=== PATIENT | female | born 1955 | race Caucasian/White ===

== ENCOUNTER 2018-10-05 14:45 | Observation (INO) | payer MEDICARE, MEDICAID ==
[~2018-10-05] VITALS: Ht 165.1 cm; Wt 36.0 kg
[~2018-10-05 14:45] MED LIST: ALL DAY10 MG PO; AMBIEN CR12.5 MG OR; AMBIEN5 MG PO; AMITIZA24 MCG PO; AMITRIPTYLIN75 MG PO; ANTIVERT OR; ARAVA20 MG OR; BACLOFEN10 MG OR; BACLOFEN10 MG PO; CIPRO XR500 MG PO; CIPRO500 MG OR; CIPROFLOXACN500 MG PO; CITALOPRAM20 MG OR; CLONAZEPAM0.5 MG PO; CLONAZEPAM1 MG PO; COLACE100 MG PO; CYANOCOBALAM1000 MCG IJ; CYANOCOBALAM1000 MCG IM; CYTOTEC200 MCG PO; DETROL LA4 MG OR; DIAZEPAM2 MG OR; DICLOXACILL500 MG PO; DILAUDID 2MG2 MG/TA1 PO; DILAUDID8 MG PO; DOC-Q-LAX1 TAB PO; DOCUSATE SOD100 MG PO; DOXYCYC MONO OR; DURAGESIC100 MCG/1 TD; EC-NAPROSYN500 MG OR; FENTANYL100 MCG/H TD; FENTANYL25 MCG/HR TD; FENTANYL50 MCG/HR TD; FERROUS SULF325 M1 PO; FEXOFENADINE180 MG PO; FLURAZEPAM30 MG OR; FOLIC ACID1 MG PO; HYDROCO/AP10 MG/660 OR; KLONOPIN0.5 MG PO; KLOR-CON M1010 MEQ OR; LASIX 20 MG TAB20 MG PO; LEVOTHYROXIN100 MC1 PO; LEVOTHYROXIN75 MC1 PO; LEVOTHYROXIN88 MC1 PO; LOPRESSOR50 MG PO; METHOTREXATE25 MG/ML IJ; METHOTREXATE25 MG/ML IM; METHOTREXATE25 MG/ML SC; METOPROLOL TART50 MG PO; METOPROLOL25 M1 OR; MORPHINE SUL100 MG OR; MORPHINE SUL30 M2 PO; MORPHINE SUL30 M3 OR; MORPHINE SUL30 M3 PO; MORPHINE SULFAT60 MG OR; NAPROXEN500 MG PO; OMEPRAZOLE20 MG PO; OXYCONTIN40 MG PO; OXYCONTIN80 MG OR; PHENERGAN25 MG/TAB PO; PRILOSEC20 MG PO; PROMETHAZINE25 MG OR; RANITIDINE150 M1 PO; REQUIP5 MG OR; SOMA350 MG OR; SUCRALFATE1 GM PO; SYNTHROID100 MCG OR; VANCOMYCIN HCL1 GM IV; VITAMIN B-12500 MC2 SC; VOLTAREN TOP; XANAX XR0.5 MG OR; ZITHROMAX250 MG PO; ZOLPIDEM5 MG PO; [UNRECOGNIZED DRUG - OTHER] OR; [UNRECOGNIZED DRUG - OTHER] PO; [UNRECOGNIZED DRUG - REMARK]
--- NOTE | 2018-10-05 14:45 | NUR ---
PT TO ROOM 10 VIA EMS. PT SEVERELY EMACIATED.
--- NOTE | 2018-10-05 15:00 | NUR ---
PT HAS SEVERE RHEUMOTOID ARTHRITIS, RIGHT HAND HAND IS BENT AND CRIPPLED LOOKING, PT APPEARS TO BE EMACIATED. SHE STATES SHE LIVES WITH NEPHEW BUT HASNT FELT LIKE EATING OR DRINKING FOR "AWHILE"
[2018-10-05 15:17] LABS: HEMATOCRIT 34.9 % (37.0-47.0); IMMATURE GRANULOCYTES 0.4 % (0.0-5.0); MEAN CELL VOLUME 89.9 fL CALC (80.0-100.0); MEAN CORPUSCULAR HGB 28.4 pG CALC (26.0-32.0); MEAN CORPUSCULAR HGB CONC 31.5 g/L CALC (32.0-36.0); NEUT# 6.36 thou/uL (2.00-7.15); RED BLOOD COUNT 3.88 mill/uL (4.20-5.60); RED CELL DISTRI WIDTH 15.7 % (11.5-15.5)
[2018-10-05 15:40] LABS: ALBUMIN 3.3 g/dL (3.2-5.0); ALKALINE PHOSPHATASE 95 u/l (38-126); ANION GAP 14 (6-22 (CALC)); BILIRUBIN, TOTAL 0.3 mg/dL (0.0-1.4); BUN 14 mg/dL (8-23); BUN/CREATININE RATIO 16 (12-20 (CALC)); CARBON DIOXIDE 24 mmol/l (22-30); CHLORIDE 108 mmol/l (95-108); CPK 70 u/l (30-165); CREATININE 0.8 mg/dL (0.5-1.0); GFR > 60 ML/MIN (>=60 (CALC)); GFR FOR AFR.AMER. > 60 ML/MIN (>=60 (CALC)); POTASSIUM 4.4 mmol/l (3.5-5.1); SGOT/AST 20 u/l (9-36); SODIUM 141 mmol/l (137-146); TOTAL PROTEIN 7.2 g/dL (6.3-8.2)
--- NOTE | 2018-10-05 15:53 | NUR ---
PT REPOSITIONED FOR COMFORT. PILLOWS FOR SUPPORTS AND PRESSURE REDUCTION.
[2018-10-05 16:38] LABS: URINE BILIRUBIN - DIPSTICK NEGATIVE (NEGATIVE); URINE BLOOD DIPSTICK TRACE-INTACT (NEGATIVE); URINE COLOR YELLOW; URINE GLUCOSE - DIPSTICK NEGATIVE (NEGATIVE); URINE KETONE NEGATIVE (NEGATIVE); URINE LEUK ESTERASE NEGATIVE (NEGATIVE); URINE NITRITE - DIPSTICK NEGATIVE (Negative); URINE PROTEIN - DIPSTICK NEGATIVE (NEG-TRACE); URINE SPECIFIC GRAVITY 1.015; URINE UROBILINOGEN - DIPSTICK 0.2 E.U./dL (0.2)
--- NOTE | 2018-10-05 16:40 | NUR ---
PT STATES SHE FEELS A LITTLE BETTER, RESTING QUIETLY ON STRECHER.
--- NOTE | 2018-10-05 17:51 | NUR ---
SAUSAGE INSPECTOR CONSULT FOR PT. PT STATES "I AM OUT OF MY PAIN MEDICATION BECAUSE MY NEPHEW, PJ, STEALS MY PAIN MEDICATION. LAST NIGHT I HAD TO TAKE BENADRYL BECAUSE I WAS GOING THROUGH WITHDRAWAL ALL MY PAIN MEDICATIONS ARE MISSING AND I HAVE NONE TO TAKE WHEN I NEED THEM.
--- NOTE | 2018-10-05 18:00 | NUR ---
[facility] dispatch advised of pt stating that her nephem PJ takes her medications. Pt states she has Dilaudid, Klonopin and Fentanyl, buthe only takes the dilaudid and fentanyl. Explained to pt that we will have to report this to the police because its against the law to take medication that isn't prescribed to you. Pt states " I don't want to get him into trouble, but he takes it from me." Advised again that it was against the law and I would bel notifying the police. "Well he gets mad so I just give him the bottles and he takes what he wants" Explained to pt that she is also committing a crime by distributing medication without a license to someone that it isn't written for. "How do I let him know since I don't know his cellphone number?" Advised she could talk to the police when they get here, but she should be ashamed of herself for condoning that behavior.
--- NOTE | 2018-10-05 18:10 | NUR ---
Officer Naomi #[id number] at bedside. Case No. [id number]
--- NOTE | 2018-10-05 18:29 | NUR ---
PT REMAINS ALERT/ORIENTED X3, NO VOMITING SINCE ARRIVAL. VITAL SIGNS STABLE. CALL LIGHT WITHIN REACH
--- NOTE | 2018-10-05 18:55 | NUR ---
REPORT CALLED TO FLOOR FOR CONTINUATION OF CARE. PT REPORT GIVEN TO ALISSA NÚÑEZ. FOR CARE UNTIL PT IS READY TO BE TAKEN TO MED SURG
[2018-10-05 19:15] VITALS: BP 143/85
--- NOTE | 2018-10-05 19:15 | NUR ---
PT ARRIVED TO FLOOR VIA STRETCHER ACCOMPAINED BY ER STAFF. PT ALERT AND ORIENTED. EMS SITE NOTED TO LAC SITE APPEARS HEALTHY. SKIN INTACT. PT NON-AMBULATORY TRANSFERED FROM STRETCHER TO BED X2 PERSON ASSIST. PT WEARS BRIEF FOR PERIODS OF INCONTINENCE. ORIENTED TO ROOM AND CALL LIGHT SYSTEM. DISCUSSED POC. PT VERBALIZED UNDERSTANDING. CALL LIGHT WITHIN REACH. WILL CONTINUE TO MONITOR.
--- NOTE | 2018-10-05 19:15 | NUR ---
PT. TAKEN [place] [facility] [place], NO C/[place].
--- NOTE | 2018-10-05 22:30 | NUR ---
PT REQUESTED SLEEPING PILL DURING ASSESSMENT. CHIEF LIFESTYLE OFFICER NOTED PT TO BE VERY DROWSY. VS TAKEN AT THIS TIME 140/81 85 99.3 18 96% ON RA. BS 122. PT NOT ABLE TO KEEP EYES OPEN TO ANSWER QUESTIONS. SLEEPING PILL NOT GIVEN AT THIS TIME. WILL CONTINUE TO MONITOR.
[2018-10-06 00:09] VITALS: BP 159/93
--- NOTE | 2018-10-06 01:15 | NUR ---
PT AWAKE, ALERT AND ORIENTED. PT REPOSITIONED IN BED. PT REQUESTING DILUADID. EDUCATED PT ON MEDICATIONS ORDERED BY PHYSICIAN. WILL ADMINISTER APAP, CONTINUE TO MONITOR AND REASSESS.
--- NOTE | 2018-10-06 02:53 | NUR ---
PT C/O NOT BEING ABLE TO SLEEP REQUESTING SLEEPING PILL AGAIN. REORIENTED PT TO TIME. PT BECAME ANXIOUS. ADMINISTERED PRN XANAX AT THIS TIME. NO S/S OF PAIN NOTED. CALL LIGHT WITHIN REACH. WILL CONTINUE TO MONITOR.
--- NOTE | 2018-10-06 03:29 | NUR ---
PT RESTING IN BED. NO S/S OF DISTRESS NOTED. CALL LIGHT WITHIN REACH. WILL CONTINUE TO MONITOR.
[2018-10-06 04:00] VITALS: BP 146/92
[2018-10-06 05:11] LABS: HEMATOCRIT 33.4 % (37.0-47.0); HEMOGLOBIN 10.5 g/dl (12.0-16.0); IMMATURE GRANULOCYTES 0.3 % (0.0-5.0); MEAN CELL VOLUME 89.3 fL CALC (80.0-100.0); MEAN CORPUSCULAR HGB 28.1 pG CALC (26.0-32.0); MEAN CORPUSCULAR HGB CONC 31.4 g/L CALC (32.0-36.0); NEUT# 5.91 thou/uL (2.00-7.15); RED BLOOD COUNT 3.74 mill/uL (4.20-5.60); RED CELL DISTRI WIDTH 15.8 % (11.5-15.5)
[2018-10-06 05:19] LABS: ALBUMIN 2.9 g/dL (3.2-5.0); ALKALINE PHOSPHATASE 89 u/l (38-126); ANION GAP 12 (6-22 (CALC)); BILIRUBIN, TOTAL 0.3 mg/dL (0.0-1.4); BUN 11 mg/dL (8-23); BUN/CREATININE RATIO 15 (12-20 (CALC)); CARBON DIOXIDE 23 mmol/l (22-30); CHLORIDE 107 mmol/l (95-108); CREATININE 0.8 mg/dL (0.5-1.0); GFR > 60 ML/MIN (>=60 (CALC)); GFR FOR AFR.AMER. > 60 ML/MIN (>=60 (CALC)); POTASSIUM 3.7 mmol/l (3.5-5.1); SGOT/AST 19 u/l (9-36); SODIUM 138 mmol/l (137-146); TOTAL PROTEIN 6.7 g/dL (6.3-8.2)
--- NOTE | 2018-10-06 08:43 | NUR ---
AT BEDSIDE DISCUSSING POC WITH PATIENT INCLUDING DISCHARGE.
[2018-10-06 09:20] VITALS: BP 123/76
--- NOTE | 2018-10-06 09:20 | NUR ---
REPORT RECEIVED FROM CAL ABREU;PT APPEARS TO BE SLEEPING IN SUPINE POSITION;RESPIRATIONS APPEAR EVEN AND UNLABORED ON RA;NO S/S OF DISTRESS NOTED;CONTACT PRECAUTIONS IN PLACE;FALL PRECAUTIONS NOTED WITH BED IN THE LOWEST POSITION AND CALL LIGHT IN REACH;WILL CONTINUE TO MONITOR
--- NOTE | 2018-10-06 09:20 | NUR ---
PT RESTING IN RIGHT SIDE LAYING POSITION,A&O X3;VS OBTAINED AND ASSESSMENT COMPLETED;PT REPORTS CHRONIC PAIN, PRN PAIN MEDICATION PROVIDED BUT PT REFUSED AT THIS TIME;RESPIRATIONS EVEN AND UNLABORED ON RA,CLEAR LUNG SOUNDS;ABDOMEN SOFT ON PALPATION AND ACTIVE IN ALL 4 QUADRANTS;STRONG PEDAL PULSES;SKIN INTACT;EMS #20G TO LAC INFUSING D5 1/2 NS @ 100ML/HR,SITE APPEARS HEALTHY;TELE MONITORING IN PLACE;PT DENIES ANY ADDITIONAL NEEDS AT THIS TIME AND IS ENCOURAGED TO CALL FOR ASSISTANCE IF NEEDED;FALL PRECAUTIONS IN PLACE WITH CALL LIGHT IN REACH;WILL CONTINUE TO MONITOR
[2018-10-06 11:15] VITALS: BP 133/76
[2018-10-06] MEDS ORDERED: PROMETHAZINE12.5 M4 PO (11:15)
--- NOTE | 2018-10-06 11:35 | NUR ---
PT RESTING IN SEMI FOWLERS POSITION;RESPIRATIONS EVEN AND UNLABORED ON RA;PT DENIES ANY CURRENT NEEDS;IV SITE TO LAC SALINE LOCKED AT THIS TIME PER ORDER;TELE MONITORING IN PLACE;PT ENCOURAGED TO CALL FOR ASSISTANCE IF NEEDED;FALL PRECAUTIONS IN PLACE WITH CALL LIGHT IN REACH;WILL CONTINUE TO MONITOR
--- NOTE | 2018-10-06 15:30 | NUR ---
ALL DISCHARGE INSTRUCTIONS PROVIDED AT THIS TIME,QUESTIONS ANSWERED;IV SITE REMOVED WITH CATHETER INTACT;AWAITING TRANSPORTATION HOME.
--- NOTE | 2018-10-06 15:52 | NUR ---
Discharge instructions given. Patient verbalizes understanding of same. Discharged in stable condition via Wheelchair to with *Other. All belongings sent with pt.
== END 2018-10-06 15:55 | disposition home or self-care (01) ==
LOC: ED 14:45 → ED-I 17:37 → ED 18:10 → MS2 18:11
PROVIDERS: ADMIT Internal Medicine Geriatric Medicine; ATTEND Internal Medicine Geriatric Medicine
DX: G89.29 Other chronic pain (principal); M06.9 Rheumatoid arthritis, unspecified; M24.562 Contracture, left knee; M24.561 Contracture, right knee; M24.575 Contracture, left foot; M24.574 Contracture, right foot; E03.9 Hypothyroidism, unspecified; M19.90 Unspecified osteoarthritis, unspecified site; F32.9 Major depressive disorder, single episode, unspecified; I10 Essential (primary) hypertension; F41.9 Anxiety disorder, unspecified; R64 Cachexia; Z99.3 Dependence on wheelchair; Z68.1 Body mass index [BMI] 19.9 or less, adult; R42 Dizziness and giddiness; R53.1 Weakness

== ENCOUNTER 2018-10-07 16:49 | Inpatient (IN) | payer MEDICARE, MEDICAID ==
[~2018-10-07] VITALS: Ht 165.1 cm; Wt 28.3 kg
[~2018-10-07 16:49] MED LIST changes: +PROMETHAZINE12.5 M4 PO
--- NOTE | 2018-10-07 16:50 | NUR ---
PT ARRIVED VIA EMS STRETCHER TO RM 9, ALERT AND RESPONSIVE, VERBALLY APPROPRIATE, NOT ACCOMPANIED BY FAMILY OR FRIENDS.
--- NOTE | 2018-10-07 17:32 | NUR ---
PT HAS SLIGHT SWELLING TO RT UPPER EYELID. PT DENIES FALL OR INJURY. PT ALERT AND ORIENTED. MAEW. NIH NEGATIVE.
--- NOTE | 2018-10-07 18:00 | NUR ---
PTS SISTERS AT BEDSIDE. VSS. PT AFEBRILE. COMPLETED 1L EMS IV FLUIDS.PT ALERT AND RESPONDS APPROPRIATELY
[2018-10-07 18:16] LABS: MEAN CELL VOLUME 91.6 fL CALC (80.0-100.0); MEAN CORPUSCULAR HGB 27.9 pG CALC (26.0-32.0); MEAN CORPUSCULAR HGB CONC 30.5 g/L CALC (32.0-36.0); NEUT# 16.42 thou/uL (2.00-7.15); RED BLOOD COUNT 4.3 mill/uL (4.20-5.60)
[2018-10-07 18:19] LABS: HEMATOCRIT 39.4 % (37.0-47.0)
[2018-10-07 18:28] LABS: ALBUMIN 3.4 g/dL (3.2-5.0); ALKALINE PHOSPHATASE 103 u/l (38-126); ANION GAP 15 (6-22 (CALC)); BILIRUBIN, TOTAL 0.5 mg/dL (0.0-1.4); BUN 17 mg/dL (8-23); BUN/CREATININE RATIO 23 (12-20 (CALC)); CARBON DIOXIDE 18 mmol/l (22-30); CHLORIDE 108 mmol/l (95-108); CREATININE 0.7 mg/dL (0.5-1.0); GFR > 60 ML/MIN (>=60 (CALC)); GFR FOR AFR.AMER. > 60 ML/MIN (>=60 (CALC)); SODIUM 139 mmol/l (137-146); TOTAL PROTEIN 7.6 g/dL (6.3-8.2)
[2018-10-07 18:39] LABS: SGOT/AST 34 u/l (9-36)
--- NOTE | 2018-10-07 19:00 | NUR ---
CLEANSED OF DARK LOOSE STOOL AND UA VIA STRAIGHT CATH PERFORMED. PT TOELRATED FAIR. PT STATES SHE HAS BEEN "OUT OF MY PAIN MEDICINE FOR 24HOURS".
[2018-10-07 19:53] LABS: URINE BILIRUBIN - DIPSTICK NEGATIVE (NEGATIVE); URINE BLOOD DIPSTICK TRACE-INTACT (NEGATIVE); URINE COLOR YELLOW; URINE GLUCOSE - DIPSTICK NEGATIVE (NEGATIVE); URINE KETONE TRACE mg/dL (NEGATIVE); URINE LEUK ESTERASE NEGATIVE (NEGATIVE); URINE NITRITE - DIPSTICK NEGATIVE (Negative); URINE PROTEIN - DIPSTICK NEGATIVE (NEG-TRACE); URINE UROBILINOGEN - DIPSTICK 0.2 E.U./dL (0.2)
[2018-10-07 19:57] LABS: BARBITURATES NEGATIVE (NEGATIVE); COCAINE NEGATIVE (NEGATIVE); METHADONE NEGATIVE (NEGATIVE); TETRAHYDROCANNABIONOL NEGATIVE (NEGATIVE); TRICYLIC ANTIDEPRESSANTS POSITIVE (NEGATIVE)
[2018-10-07 19:58] LABS: OXCYCODONE NEGATIVE (NEGATIVE)
--- NOTE | 2018-10-07 20:15 | NUR ---
PATIENT ABX AND INF HUNG. AWAITING DISPOSITION.
--- NOTE | 2018-10-07 21:22 | NUR ---
PATIENT INFORMED OF PLANS TO ADMIT. MEDICATED WITH PO KCL AND SECOND ABX GIVEN. PATIENT C/O INCREASED BACK PAIN. STATES SHE RAN OUT OF HER FENTANYL AND DILAUDID ON SATURDAY.
--- NOTE | 2018-10-07 21:52 | NUR ---
REPORT CALLED TO JAVIER IN ICU (MS OVERFLOW). PATIENT READIED FOR TRANSPORT TO FLOOR.
[2018-10-07 22:05] VITALS: BP 148/96
--- NOTE | 2018-10-07 22:05 | NUR ---
63 yr old white female admitted to [id number] as med surg tele overflow. transferred x2 to bed. bed weight obtained. pt admits to "no pain medicine @ home." also admits "transport company couldn't take me to the appointment."
--- NOTE | 2018-10-07 22:10 | NUR ---
mrsa swab collected & sent to lab.
[2018-10-08] VITALS (7 sets, daily range): BP systolic 127–153; BP diastolic 71–85
--- NOTE | 2018-10-08 00:10 | NUR ---
lab here. blood drawn.
--- NOTE | 2018-10-08 04:00 | NUR ---
awake. pvc monitor shows sinus rhythm.
--- NOTE | 2018-10-08 06:06 | NUR ---
lab here. blood drawn.
--- NOTE | 2018-10-08 08:00 | NUR ---
PT STATES NO APPETITE FOR BREAKFAST. PT COMPLAINS OF PAIN TO LOWER EXTREMITIES AND BACK, REPOSITIONED FOR COMFORT.
[2018-10-08 08:30] LABS: HEMATOCRIT 32.5 % (37.0-47.0); HEMOGLOBIN 10.2 g/dl (12.0-16.0); IMMATURE GRANULOCYTES 0.7 % (0.0-5.0); MEAN CELL VOLUME 90.5 fL CALC (80.0-100.0); MEAN CORPUSCULAR HGB 28.4 pG CALC (26.0-32.0); MEAN CORPUSCULAR HGB CONC 31.4 g/L CALC (32.0-36.0); NEUT# 13.96 thou/uL (2.00-7.15); RED BLOOD COUNT 3.59 mill/uL (4.20-5.60)
[2018-10-08 09:39] LABS: ALKALINE PHOSPHATASE 84 u/l (38-126); BILIRUBIN, TOTAL 0.4 mg/dL (0.0-1.4); BUN 12 mg/dL (8-23); BUN/CREATININE RATIO 19 (12-20 (CALC)); CARBON DIOXIDE 16 mmol/l (22-30); CHLORIDE 115 mmol/l (95-108); CREATININE 0.6 mg/dL (0.5-1.0); GFR > 60 ML/MIN (>=60 (CALC)); GFR FOR AFR.AMER. > 60 ML/MIN (>=60 (CALC)); SGOT/AST 26 u/l (9-36); SODIUM 139 mmol/l (137-146); TOTAL PROTEIN 6.2 g/dL (6.3-8.2)
[2018-10-08 09:40] LABS: ALBUMIN 2.6 g/dL (3.2-5.0); ANION GAP 12 (6-22 (CALC)); POTASSIUM 3.7 mmol/l (3.5-5.1)
--- NOTE | 2018-10-08 11:51 | NUR ---
SPIRITS MODEL STUDENT @BEDSIDE, FEEDING PT LUNCH.
--- NOTE | 2018-10-08 13:11 | NUR ---
PT FED LUNCH, ATE MINIMAL AMOUNT. NO DISTRESS SHE RESTS IN THE BED.
--- NOTE | 2018-10-08 13:52 | NUR ---
RT @BEDSIDE FOR BREATHING TREATMENT.
--- NOTE | 2018-10-08 14:44 | NUR ---
PT ENJOYS VISIT FROM HER SISTER. NO CHANGE IN STATUS NOTED.
--- NOTE | 2018-10-08 20:57 | NUR ---
Patient is resting in bed. Patient complaints of pain 01/21. V/S wnl. Patient given prn po dilaudid for pain. Breath sounds clear. Patient is very frail and week. She is contracted in her hands and legs. Skin intact. No S&S of distress. Patient repositioned for comfort. Will continue to monitor patient progress.
[2018-10-09] VITALS: BP 135/79
--- NOTE | 2018-10-09 00:51 | NUR ---
Patient resting in bed. No S&S of distress. No change in previous assessment. Will continue to monitor patient progress.
[2018-10-09 04:00] VITALS: BP 139/81
[2018-10-09 05:42] LABS: HEMATOCRIT 31.8 % (37.0-47.0); IMMATURE GRANULOCYTES 1.6 % (0.0-5.0); MEAN CELL VOLUME 90.1 fL CALC (80.0-100.0); MEAN CORPUSCULAR HGB 28.3 pG CALC (26.0-32.0); MEAN CORPUSCULAR HGB CONC 31.4 g/L CALC (32.0-36.0); NEUT# 7.54 thou/uL (2.00-7.15); RED BLOOD COUNT 3.53 mill/uL (4.20-5.60); RED CELL DISTRI WIDTH 16.6 % (11.5-15.5)
[2018-10-09 05:43] LABS: ALBUMIN 2.5 g/dL (3.2-5.0); ALKALINE PHOSPHATASE 76 u/l (38-126); ANION GAP 11 (6-22 (CALC)); BILIRUBIN, TOTAL 0.3 mg/dL (0.0-1.4); BUN 9 mg/dL (8-23); BUN/CREATININE RATIO 16 (12-20 (CALC)); CARBON DIOXIDE 18 mmol/l (22-30); CHLORIDE 113 mmol/l (95-108); CREATININE 0.6 mg/dL (0.5-1.0); GFR > 60 ML/MIN (>=60 (CALC)); GFR FOR AFR.AMER. > 60 ML/MIN (>=60 (CALC)); POTASSIUM 3.2 mmol/l (3.5-5.1); SGOT/AST 18 u/l (9-36); SODIUM 139 mmol/l (137-146); TOTAL PROTEIN 5.9 g/dL (6.3-8.2)
--- NOTE | 2018-10-09 07:53 | NUR ---
STRAIGHT CATH COMPLETED USING STERILE PROCEDURE FOR UA SAMPLE D/T INCONTENENCE.
[2018-10-09 08:00] VITALS: BP 140/89
[2018-10-09 08:02] LABS: URINE BILIRUBIN - DIPSTICK NEGATIVE (NEGATIVE); URINE BLOOD DIPSTICK MODERATE (NEGATIVE); URINE COLOR YELLOW; URINE GLUCOSE - DIPSTICK NEGATIVE (NEGATIVE); URINE KETONE TRACE mg/dL (NEGATIVE); URINE LEUK ESTERASE NEGATIVE (Negative); URINE NITRITE - DIPSTICK NEGATIVE (Negative); URINE PROTEIN - DIPSTICK NEGATIVE (NEG-TRACE); URINE SPECIFIC GRAVITY 1.025; URINE UROBILINOGEN - DIPSTICK 0.2 E.U./dL (0.2)
[2018-10-09 08:05] LABS: URINE CLARITY TURBID
[2018-10-09 08:17] LABS: URINE SQUAMOUS EPITHELIAL CELL FEW EPI/hpf (0-FEW)
--- NOTE | 2018-10-09 08:30 | NUR ---
DR RYAN @BEDSIDE WITH PT.
--- NOTE | 2018-10-09 09:12 | NUR ---
CONFIRMED PLACEMENT BACK HOME WITH [facility], CASE MANAGEMENT. STATED PT HAS PRIOR PLACEMENT TO REHAB & REFUSED PLACEMENT IN REHAB AGAIN. STATED NEPHEW LIVES WITH PT TO HELP CARE FOR HER. DISCUSSED OPTIONS FOR ALTERNATE PLACEMENT D/T CONCERNS ABOUT ABILITY TO TAKE CARE OF SELF & RAPID READMIT AFTER LAST DC. NOTIFIED PT CAN BE TRANSFERED HOME BY WC AFTER CALLING [employer].
--- NOTE | 2018-10-09 09:45 | NUR ---
PT SEEN AWAKE, ALERT THIS MORNING. SHE DOES HAVE TREMORS TODAY INTERMITTENTLY. PT DRANK ENSURE THIS MORNING, LATER A CUP OF APPLESAUCE. PT SEEN BY [facility] TODAY, PLAN IS TO DISCHARGE BACK HOME TODAY.
--- NOTE | 2018-10-09 11:26 | NUR ---
CALLED [phone] FOR TRANSPORT HOME. WERNER STATES [facility] WILL NEED TO BORROW A WC TO TAKE PT HOME BUT WILL BRING IT BACK. WILL BE HERE SOON THEY CAN THERESA CASE MANAGCHAD, AWARE OF BORROWING WC, NEED INFO TO HOLD TRANSPORT ACCOUNTABLE.
--- NOTE | 2018-10-09 12:05 | NUR ---
PT LEAVES FOR HOME VIA [employer], VERBALIZES UNDERSTANDING OF DC INSTRUCTIONS. SISTER SYEDA CALLED EARLIER AND WAS UPDATED ON IMPENDING DISCHARGE, STATES THAT SOMEONE WILL BE AT HER HOUSE WHEN SHE IS DELIVERED THERE.
== END 2018-10-09 11:50 | disposition home or self-care (01) | DRG 92 ==
LOC: ED 16:49 → ED-I 20:55 → ED 21:34 → ICU 21:35
PROVIDERS: Emergency Medicine; ADMIT Internal Medicine Geriatric Medicine; ATTEND Internal Medicine Geriatric Medicine
DX: G89.29 Other chronic pain (principal); F11.20 Opioid dependence, uncomplicated; Z68.1 Body mass index [BMI] 19.9 or less, adult; M06.9 Rheumatoid arthritis, unspecified; M19.90 Unspecified osteoarthritis, unspecified site; I10 Essential (primary) hypertension; D63.8 Anemia in other chronic diseases classified elsewhere; F41.9 Anxiety disorder, unspecified; F32.9 Major depressive disorder, single episode, unspecified; H51.9 Unspecified disorder of binocular movement; M24.562 Contracture, left knee; M24.561 Contracture, right knee; M24.575 Contracture, left foot; M24.574 Contracture, right foot; M62.50 Muscle wasting and atrophy, not elsewhere classified, unspecified site; R63.6 Underweight